=== PATIENT | female | born 1965 | race African-American/Black ===

== ENCOUNTER 2021-04-08 09:45 | Emergency (ER) | payer MEDICAID ==
[~2021-04-08] VITALS: Ht 172.7 cm; Wt 89.0 kg
[2021-04-08] MEDS ORDERED: ONDANSETRON HCL 4MG/2ML INJ IM ONE (11:00)
[2021-04-08] MEDS ORDERED: KETOROLAC 30MG/ML VIAL IM ONE (11:00)
[2021-04-08 12:47] VITALS: BP 108/74
[2021-04-08 13:01] LABS: BASOPHILS % 0.7 % (0.0-2.0); EOSINOPHILS % 0.3 % (0.0-5.0); HEMATOCRIT. 48.1 % (36.0-48.0); HEMOGLOBIN. 15.8 g/dL (12.0-16.0); LYMPHOCYTES % 29.5 % (20.0-50.0); MEAN CORPUSCULAR HEMOGLOBIN 29.2 pg (28.0-32.0); MEAN CORPUSCULAR VOLUME 89.1 fL (81.0-99.0); MEAN PLATELET VOLUME 8.8 fl (7.4-10.4); MONOCYTES % 11.2 % (2.0-8.0); NEUTROPHILS % 58.3 % (40.0-76.0); PLATELET 186 x1000/uL (130-400); RED BLOOD CELL COUNT 5.39 mill/uL (4.2-5.4); RED CELL DISTRIBUTION WIDTH 13.2 % (11.6-14.6)
[2021-04-08 13:06] LABS: CHLORIDE 103 mEq/L (98-107)
[2021-04-08] MEDS ORDERED: SODIUM CHLORIDE 0.9% 1,000 ML IV ONE (14:00)
[2021-04-08] MEDS ORDERED: ONDA4TAB5 MT (15:20)
[2021-04-08] MEDS ORDERED: FAMO-135 MT (15:20)
[2021-04-08 15:32] LABS: CLARITY URINE CLOUDY (CLEAR); COLOR URINE ORANGE (YELLOW); KETONES URINE 3+ (NEGATIVE); LEUKOCYTE ESTERASE URINE 1+ (NEGATIVE); NITRITE URINE NEGATIVE (NEGATIVE); OCCULT BLOOD URINE TRACE (NEGATIVE); PROTEIN URINE 3+ (NEGATIVE); SPECIFIC GRAVITY URINE 1.032 (1.005-1.030)
== END 2021-04-08 15:52 | disposition home or self-care (01) ==
LOC: ER 09:45
DX: U07.1 COVID-19 (principal); R10.9 Unspecified abdominal pain; R11.2 Nausea with vomiting, unspecified; R19.7 Diarrhea, unspecified
CPT/HCPCS: 36415; 71045; 80053; 81003; 83690; 85025; 96360; 96372; 99284; C9803; J1885; J2405; J7030; U0003; U0005; Z7610

== ENCOUNTER 2024-05-04 06:43 | Inpatient (IN) | payer SELFPAY ==
[~2024-05-04] VITALS: Ht 180.3 cm; Wt 57.2 kg
[~2024-05-04 06:43] MED LIST: FAMO-135 MT; ONDA4TAB5 MT
[2024-05-04 06:49] VITALS: O2SAT 98
[2024-05-04] MEDS ORDERED: DICYCLOMINE 10 MG/5 ML ORAL SYR PO NR (07:29)
[2024-05-04 07:39] LABS: CARBON DIOXIDE 22 mEq/L (21-32); CHLORIDE 107 mEq/L (98-107); POTASSIUM 3.4 mEq/L (3.5-5.1); SODIUM 142 mEq/L (136-145)
[2024-05-04 07:40] LABS: CALCIUM 9.6 mg/dL (8.7-10.4)
[2024-05-04 07:44] LABS: BASOPHILS % 0.3 % (0.0-2.0); HEMATOCRIT. 46.9 % (36.0-48.0); HEMOGLOBIN. 15.6 g/dL (12.0-16.0); LYMPHOCYTES % 7.1 % (20.0-50.0); MEAN CORPUSCULAR HEMOGLOBIN 30.7 pg (28.0-32.0); MEAN CORPUSCULAR HGB CONC 33.2 g/dL (31.0-37.0); MEAN CORPUSCULAR VOLUME 92.5 fL (81.0-99.0); MEAN PLATELET VOLUME 8.7 fl (7.4-10.4); MONOCYTES % 6.3 % (2.0-8.0); NEUTROPHILS % 86.3 % (40.0-76.0); PLATELET 181 x1000/uL (130-400); RED BLOOD CELL COUNT 5.07 mill/uL (4.2-5.4); RED CELL DISTRIBUTION WIDTH 13.7 % (11.6-14.6); WHITE BLOOD COUNT 9.5 x1000/uL (4.5-11.0)
[2024-05-04 07:45] LABS: GLUCOSE 148 mg/dL (70-105); UREA NITROGEN BLOOD 27 mg/dL (9-23)
[2024-05-04 07:46] LABS: ALANINE AMINOTRANSFERASE 14 IU/L (10-49)
[2024-05-04 07:47] LABS: ALBUMIN 4.7 g/dL (3.2-4.8); ASPARTATE AMINOTRANSFERASE 33 IU/L (<34); BILIRUBIN DIRECT 0.1 mg/dL (<=3.0); BILIRUBIN TOTAL 0.4 mg/dL (0.1-1.0); PROTEIN TOTAL 8.3 g/dL (6.0-8.3)
[2024-05-04] MEDS: SODIUM CHLORIDE 0.9% 1,000 ML IV ONE (09:17)
[2024-05-04] MEDS: ONDANSETRON HCL 4MG/2ML INJ IV NR (09:17)
[2024-05-04] MEDS: KCL 20MEQ/100ML PREMIX 100 ML IV ONE (09:17)
[2024-05-04] MEDS: DICYCLOMINE HCL 10MG CAPSULE PO NR (09:52)
[2024-05-04 12:57] VITALS: BP 110/70; PULSE 82; RESP 18; TEMP 36.5; O2SAT 99
[2024-05-04 13:03] VITALS: BP 110/70; PULSE 82; RESP 18; TEMP 36.5
[2024-05-04] MEDS ORDERED: ACETAMINOPHEN 325MG TABLET PO PRN (13:15)
[2024-05-04 15:58] LABS: CLARITY URINE CLOUDY (CLEAR); COLOR URINE DARK YELLOW (YELLOW); GLUCOSE URINE NEGATIVE (NEGATIVE); KETONES URINE 2+ (NEGATIVE); LEUKOCYTE ESTERASE URINE 1+ (NEGATIVE); NITRITE URINE NEGATIVE (NEGATIVE); OCCULT BLOOD URINE 3+ (NEGATIVE); PH URINE 5.5 (4.5-8.0); PROTEIN URINE 4+ (NEGATIVE); SPECIFIC GRAVITY URINE 1.031 (1.005-1.030)
[2024-05-04 16:00] VITALS: BP 99/64; PULSE 85; RESP 18; TEMP 36.4; O2SAT 97
[2024-05-04 16:14] LABS: *AMPHETAMINES SCREEN URINE NEGATIVE (NEGATIVE); *BARBITURATES SCREEN URINE NEGATIVE (NEGATIVE); *BENZODIAZEPINES SCREEN URINE NEGATIVE (NEGATIVE); *COCAINE SCREEN URINE NEGATIVE (NEGATIVE); CANNABINOID URINE SCREEN PRESUMPTIVE POSITIVE (NEGATIVE); ECSTASY MDMA SCREEN URINE NEGATIVE (NEGATIVE); METHADONE URINE SCREEN NEGATIVE (NEGATIVE); OPIATES URINE SCREEN NEGATIVE (NEGATIVE); PHENCYCLIDINE URINE SCREEN NEGATIVE (NEGATIVE)
[2024-05-04 16:15] LABS: SQUAMOUS EPITHELIAL CELL URINE 1+ /lpf (RARE/1+)
[2024-05-04 16:16] LABS: BACTERIA URINE 3+
[2024-05-04] MEDS: ONDANSETRON HCL 4MG/2ML INJ IV PRN (19:50)
[2024-05-04 20:00] VITALS: BP 117/63; PULSE 92; RESP 19; TEMP 37; O2SAT 99
[2024-05-05] VITALS: BP_SYST 113; BP_SYST 153; BP_DIAS 71; BP_DIAS 86; PULSE 82; PULSE 87; RESP 17; RESP 18; TEMP 38.2; TEMP 38.3; O2SAT 100; O2SAT 99
[2024-05-05] MEDS: ZOLPIDEM TARTRATE 5MG TABLET PO PRN (00:41)
[2024-05-05 08:00] VITALS: BP 111/77; PULSE 86; RESP 15; TEMP 36; O2SAT 98
== END 2024-05-05 10:20 | disposition left against medical advice (07) | DRG 249 ==
LOC: ER 06:43 → EDBEDREQ 09:24 → 8WST 10:03 → EDBEDREQTM 10:46 → EDBEDREQSVC 10:46 → EDBEDREQ 10:46
PROVIDERS: ADMIT Internal Medicine; ATTEND Internal Medicine
DX: R11.2 Nausea with vomiting, unspecified (principal); F17.200 Nicotine dependence, unspecified, uncomplicated; R10.9 Unspecified abdominal pain; R19.7 Diarrhea, unspecified; R53.1 Weakness; Z53.29 Procedure and treatment not carried out because of patient's decision for other reasons
CPT/HCPCS: 36415; 80048; 80076; 80305; 81003; 85025; 93005; C1893; J2405; J3480

== ENCOUNTER 2024-05-06 15:32 | Inpatient (IN) | payer SELFPAY ==
[~2024-05-06] VITALS: Ht 162.6 cm; Wt 60.3 kg
[2024-05-06 16:38] LABS: BASOPHILS % 0.5 % (0.0-2.0); HEMOGLOBIN. 15.8 g/dL (12.0-16.0); MEAN CORPUSCULAR HEMOGLOBIN 29.8 pg (28.0-32.0); MEAN CORPUSCULAR HGB CONC 32.3 g/dL (31.0-37.0); MEAN CORPUSCULAR VOLUME 92.2 fL (81.0-99.0); MEAN PLATELET VOLUME 9.6 fl (7.4-10.4); MONOCYTES % 10.7 % (2.0-8.0); NEUTROPHILS % 70.8 % (40.0-76.0); PLATELET 167 x1000/uL (130-400); RED BLOOD CELL COUNT 5.32 mill/uL (4.2-5.4); RED CELL DISTRIBUTION WIDTH 14.3 % (11.6-14.6); WHITE BLOOD COUNT 6.5 x1000/uL (4.5-11.0)
[2024-05-06 16:41] LABS: CHLORIDE 110 mEq/L (98-107); POTASSIUM 3.5 mEq/L (3.5-5.1); SODIUM 146 mEq/L (136-145)
[2024-05-06 16:42] LABS: CARBON DIOXIDE 24 mEq/L (21-32)
[2024-05-06 16:43] LABS: CALCIUM 9.3 mg/dL (8.7-10.4)
[2024-05-06 16:47] LABS: CREATININE 0.9 mg/dL (0.6-1.0); GLUCOSE 140 mg/dL (70-105)
[2024-05-06 16:48] LABS: TROPONIN I HIGH SENSITIVITY 7 ng/L (3.0-34); UREA NITROGEN BLOOD 30 mg/dL (9-23)
[2024-05-06 16:49] LABS: ALANINE AMINOTRANSFERASE 25 IU/L (10-49); ASPARTATE AMINOTRANSFERASE 44 IU/L (<34)
[2024-05-06 16:50] LABS: ALBUMIN 4.4 g/dL (3.2-4.8); BILIRUBIN TOTAL 0.5 mg/dL (0.1-1.0); PROTEIN TOTAL 8.1 g/dL (6.0-8.3)
[2024-05-06] MEDS ORDERED: GUAIFENESIN 200MG/10ML SUGAR FREE UDC PO PRN (20:45)
[2024-05-06] MEDS ORDERED: MAGNESIUM/ALUMINUM HYDROXIDE/SIMETHICONE 30ML UDC PO PRN (20:45)
[2024-05-06] MEDS ORDERED: ACETAMINOPHEN 325MG TABLET PO PRN (20:45)
[2024-05-06] MEDS ORDERED: IPRATROPIUM/ALBUTEROL 0.5-3(2.5)MG/3ML NEB HHN PRN (20:45)
[2024-05-06] MEDS ORDERED: CLONIDINE 0.1MG TABLET PO PRN (20:45)
[2024-05-06] MEDS ORDERED: KETOROLAC 15MG/ML VIAL IV PRN (20:45)
[2024-05-06] MEDS: DEXT 5%/0.45% NACL 1000ML 1,000 ML IV SCH (21:00)
[2024-05-06 21:44] LABS: T4 FREE 1.21 ng/dL (0.89-1.76); THYROID STIMULATING HORMONE 1.17 uIU/mL (0.55-4.78); VITAMIN B12 SERUM 532 pg/mL (211-911)
[2024-05-06] MEDS: SODIUM CHLORIDE 0.9% 1,000 ML IV ONE (23:28)
[2024-05-07] MEDS: ONDANSETRON HCL 4MG/2ML INJ IV ONE (00:07)
[2024-05-07 00:38] LABS: TROPONIN I HIGH SENSITIVITY 6 ng/L (3.0-34)
[2024-05-07 01:40] VITALS: BP 111/77; PULSE 85; RESP 22; TEMP 36.7
[2024-05-07 08:00] VITALS: BP 130/57; PULSE 73; RESP 20; TEMP 36.7; O2SAT 100
[2024-05-07 08:39] LABS: CARBON DIOXIDE 27 mEq/L (21-32); CHLORIDE 110 mEq/L (98-107); POTASSIUM 3.5 mEq/L (3.5-5.1); SODIUM 148 mEq/L (136-145)
[2024-05-07 08:40] LABS: CALCIUM 9.1 mg/dL (8.7-10.4)
[2024-05-07 08:45] LABS: GLUCOSE 120 mg/dL (70-105); TROPONIN I HIGH SENSITIVITY 6 ng/L (3.0-34); UREA NITROGEN BLOOD 33 mg/dL (9-23)
[2024-05-07] MEDS: PANTOPRAZOLE SODIUM 40 MG/VIAL IV SCH (09:00)
[2024-05-07 09:18] LABS: BASOPHILS % 0.5 % (0.0-2.0); EOSINOPHILS % 0.1 % (0.0-5.0); HEMATOCRIT. 45.6 % (36.0-48.0); HEMOGLOBIN. 14.7 g/dL (12.0-16.0); LYMPHOCYTES % 22.8 % (20.0-50.0); MEAN CORPUSCULAR HGB CONC 32.3 g/dL (31.0-37.0); MEAN CORPUSCULAR VOLUME 92.9 fL (81.0-99.0); MONOCYTES % 13.4 % (2.0-8.0); NEUTROPHILS % 63.2 % (40.0-76.0); PLATELET 155 x1000/uL (130-400); RED CELL DISTRIBUTION WIDTH 14.2 % (11.6-14.6); WHITE BLOOD COUNT 5.9 x1000/uL (4.5-11.0)
[2024-05-07] MEDS: ONDANSETRON HCL 4MG/2ML INJ IV PRN (10:07)
[2024-05-07 12:00] VITALS: BP 111/72; PULSE 69; RESP 20; TEMP 36.6; O2SAT 99
[2024-05-07] MEDS ORDERED: ONDA4TAB50 PO (15:32)
[2024-05-07] MEDS ORDERED: OMEP40CA20 PO (15:32)
[2024-05-07 15:38] VITALS: BP 105/62; PULSE 75; TEMP 97.6; O2SAT 97
== END 2024-05-07 15:56 | disposition home or self-care (01) | DRG 249 ==
LOC: ER 15:32 → 7EST 19:00 → EDBEDREQ 19:22 → EDBEDREQTM 19:22
PROVIDERS: ADMIT Internal Medicine; ATTEND Internal Medicine
DX: A08.4 Viral intestinal infection, unspecified (principal)
CPT/HCPCS: 36415; 80048; 80053; 80061; 82607; 84439; 84443; 84484; 85025; 93005; 99285; J2405; J2470; J7030

== ENCOUNTER 2025-02-18 14:32 | Emergency (ER) | payer MEDICAID ==
[~2025-02-18] VITALS: Ht 170.2 cm; Wt 65.0 kg
[~2025-02-18 14:32] MED LIST changes: -FAMO-135 MT; +OMEP40CA20 PO; -ONDA4TAB5 MT; +ONDA4TAB50 PO
[2025-02-18 14:50] VITALS: O2SAT 98
[2025-02-18] MEDS: SODIUM CHLORIDE 0.9% 1,000 ML IV ONE (15:38)
[2025-02-18] MEDS: ONDANSETRON HCL 4MG/2ML INJ IV ONE (15:38)
[2025-02-18 15:56] LABS: BASOPHILS % 0.3 % (0.0-2.0); EOSINOPHILS % 0.2 % (0.0-5.0); HEMATOCRIT. 45.6 % (36.0-48.0); HEMOGLOBIN. 14.9 g/dL (12.0-16.0); LYMPHOCYTES % 17.5 % (20.0-50.0); MEAN PLATELET VOLUME 8.1 fl (7.4-10.4); MONOCYTES % 6.2 % (2.0-8.0); NEUTROPHILS % 75.8 % (40.0-76.0); PLATELET 286 x1000/uL (130-400); RED BLOOD CELL COUNT 4.85 mill/uL (4.2-5.4); RED CELL DISTRIBUTION WIDTH 13.8 % (11.6-14.6)
[2025-02-18 16:14] LABS: CREATININE 0.8 mg/dL (0.6-1.0); UREA NITROGEN BLOOD 14 mg/dL (9-23)
[2025-02-18 16:16] LABS: ASPARTATE AMINOTRANSFERASE 15 IU/L (<34); BILIRUBIN DIRECT 0.2 mg/dL (<=3.0); BILIRUBIN TOTAL 0.6 mg/dL (0.1-1.0); PROTEIN TOTAL 8.4 g/dL (6.0-8.3)
[2025-02-18 16:20] VITALS: TEMP 36.8
[2025-02-18] MEDS ORDERED: ONDA4TAB50 MT (17:06)
[2025-02-18 18:25] VITALS: BP 144/69; PULSE 70; RESP 14; O2SAT 99
== END 2025-02-18 18:40 | disposition home or self-care (01) ==
LOC: ER 14:32
DX: R11.2 Nausea with vomiting, unspecified (principal); F12.90 Cannabis use, unspecified, uncomplicated; Z79.899 Other long term (current) drug therapy
CPT/HCPCS: 80076; 80048; 85025; 36415; 93005; 96361; 96374; 99284; J2405; J7030; Z7610